=== PATIENT | male | born 1950 | race Caucasian/White ===

== ENCOUNTER 2020-04-21 16:26 | Emergency (ER) | payer MEDICARE, OTHER, SELFPAY ==
--- NOTE | ~2020-04-21 | XR_ITS ---
XR chest 2V DATE: 04/21/2020 17:53 INDICATION: Fever of unknown origin TECHNIQUE: PA and lateral chest COMPARISON: None FINDINGS: Normal heart size. No hilar or mediastinal enlargement. No pulmonary infiltrate or consol idation, pulmonary vascular congestion or pleural effusion or pneumothorax. IMPRESSION: No active cardiopulmonary disease Reviewed, dictated and finalized at location A.
[2020-04-21 16:42] VITALS: BP 150/73; PULSE 84; RESP 18; TEMP 38.9; O2SAT 97
[2020-04-21 17:01] VITALS: TEMP 38.8
[2020-04-21] MEDS: ACETAMINOPHEN 325 MG TABLET 650 MG PO (17:01)
--- NOTE | 2020-04-21 17:16 | ED.URI ---
HPI - URI/Sore Throat General Chief Complaint: Upper Respiratory Infection Stated Complaint: fever, headache, and aches Time Seen by Provider: 04/21/20 17:17 Source: patient Mode of arrival: ambulatory Limitations: no limitations History of Present Illness HPI Narrative: Jj Chambers is a 69 yo male with a PMH of HTN, high cholesterol, BPH, who comes to the [facility] with fatigue temperature 102. States that he has fatigue and unable to get his temperature under control, has taken 04/19/2025 aspirin throughout the day with no change in temperature and was given 650 mg Tylenol upon arrival. Half an hour later his temperature has gone up to 102.2. He has chronic gallbladder disease that his been managed through his PCP. He has a an ultrasound 6 months ago that showed a contracted gallbladder but also with 3.2 cm aortic aneurysm, he is scheduled for repeat ultrasound because of intermittent pain abdominal pain on Wednesday,. Blood work done 2 weeks ago which showed everything to be within normal range. After being in office for a period of time told nurse that he had been camping a few weeks ago and got multiple tick bites, upon exam shows that has red wheeler on legs Related Data Home Medications Medication Instructions Recorded Confirmed lisinopril 10 mg tablet 10 mg PO DAILY 04/08/20 04/09/20 metoprolol succinate 25 mg 25 mg PO DAILY 04/08/20 04/09/20 tablet,extended release 24 hr rosuvastatin 20 mg tablet 20 mg PO DAILY 04/08/20 04/09/20 aspirin 81 mg tablet,delayed 81 mg PO DAILY 04/09/20 04/09/20 release cholecalciferol (vitamin D3) 25 2,000 unit PO DAILY cap 04/09/20 04/09/20 mcg (1,000 unit) capsule cyanocobalamin (vitamin B-12) 1,000 mcg PO DAILY 04/09/20 04/09/20 1,000 mcg capsule Allergies Allergy/AdvReac Type Severity Reaction Status Date / Time methylisothiazolinone Allergy Unknown Blister Verified 04/09/20 09:07 Penicillins Allergy Unknown Unknown Verified 04/09/20 09:07 Review of Systems Review of Systems: Narrative: CONSTITUTIONAL: has fever, chills, sweats.Fatigue, pale EYES: Denies visual changes, redness, discharge. ENT: Denies rhinorrhea, congestion, sore throat, otalgia. CARDIOVASCULAR: Denies chest pain, palpitations, edema. RESPIRATORY: Denies dyspnea, wheezing, cough GASTROINTESTINAL: Denies abdominal pain, nausea, vomiting, diarrhea. GENITOURINARY: Denies dysuria, hematuria, abnormal discharge SKIN: Denies rash or itching. NEUROLOGIC: Denies numbness, or focal weakness. PSYCHIATRIC: Denies anxiety or depression. PMFSH Past Medical History Medical History AAA (abdominal aortic aneurysm) Basal cell carcinoma 1998 HTN (hypertension) Hyperglycemia Pure hypercholesterolemia Vitamin D deficiency Surgical History Surgical History H/O cystoscopy 2005 History of tonsillectomy 1952 Family History Family History Sibling Acute myocardial infarction Father Family history of renal failure COPD (chronic obstructive pulmonary disease) CAD (coronary artery disease) Mother Lung fibrosis Social History Social History Smoking status: Never smoker Second hand tobacco smoke exposure: No Alcohol intake: current Drinks per week: 10 Comments At time of signature, I agree with nursing past medical, surgical, social and family history. There is no relevant family history pertinent to the presenting complaint. Exam Narrative: Exam Narrative: GENERAL: This is a well-nourished, well-developed patient, is ill, states quite fatigued EYES: Sclera clear/white. Vision is grossly intact. EARS: External ears normal. Hearing grossly intact. NOSE: External nose normal without nasal discharge, nares without redness, no rhinorrhea. THROAT: Mucous membranes mois
[2020-04-21 17:39] VITALS: TEMP 39
[2020-04-21] MEDS: KETOROLAC 30 MG/ML VIAL (*BKC) IM (18:09)
--- NOTE | 2020-04-21 18:18 | PC.NURSE ---
Pt reports camping 2 weeks ago and had several tick bites. Pt has 3 red spots on left upper thigh where he reports having tick bites.Jasmyn Walker [employer] notified
[2020-04-21 18:36] VITALS: TEMP 37.4
== END 2020-04-21 18:57 | disposition home or self-care (01) ==
PROVIDERS: Emergency Provider Nurse Practitioner; PCP Internal Medicine
DX: R50.9 Fever, unspecified (principal); S70.362A Insect bite (nonvenomous), left thigh, initial encounter; S70.361A Insect bite (nonvenomous), right thigh, initial encounter; Z20.828 Contact with and (suspected) exposure to other viral communicable diseases; W57.XXXA Bitten or stung by nonvenomous insect and other nonvenomous arthropods, initial encounter; I10 Essential (primary) hypertension; E78.00 Pure hypercholesterolemia, unspecified; E55.9 Vitamin D deficiency, unspecified; Z85.828 Personal history of other malignant neoplasm of skin; Z79.82 Long term (current) use of aspirin
CPT/HCPCS: 71046; 81003; 87081; 87880; 96372; 99213; A9270; G0463; J1885